=== PATIENT | male | born 1985 | race African-American/Black ===

== ENCOUNTER 2019-08-09 21:24 | Inpatient (IN) ==
[2019-08-09] MEDS ORDERED: NS 500 ML IV ONE (21:25)
[2019-08-09] MEDS ORDERED: NS 1,000 ML IV ONE ×2 (21:25→23:49)
[2019-08-09] MEDS ORDERED: TYLENOL PR ONE (21:28)
--- NOTE | 2019-08-09 21:39 | PROVIDER DOCUMENTATION ---
This chart was entered by Soraya Hidalgo Scribe, acting as scribe for Paul Cole MD. HPI-General Adult - General Stated Complaint: AMS Time Seen by Provider: 08/09/19 21:24 Source: EMS Allergies/Adverse Reactions: Patient Allergies Allergy/AdvReac Type Severity Reaction Status Date / Time No Known Allergies Allergy Verified 04/16/19 21:56 Home Medications: Home Medication List Medication Instructions Recorded Confirmed Last Taken Type NK [No Home Medications] 08/09/19 08/09/19 Unknown History - History of Present Illness -Gen Adult Nature of Presenting Problems: pt is a 34 yobm presenting w/ems w/cc pt was found in vehicle by workers at [employer], having seizure like activity. enroute, pt had voided and defecated on self, cold to touch and is disoriented to person, place and president. pt did deny drug use. in er pt continues to have diarrhea and rectal temp is 102.4. Severity: reports: moderate Onset/Duration: reports: just prior to arrival Timing: reports: still present Context/Activities at Onset: reports: cold exposure (found in vehicle, was there unk amt of time) Modifying Factors: improves with: nothing Associated Symptoms: reports: diarrhea, fever/chills (102.4), genitourinary problems (incontinence.), seizure (seizure like activity), other (ams, defecated on self) Review of Systems - Adult - REVIEW OF SYSTEMS - ADULT ROS:: limited per condition (ems ros) Constitutional: reports: see HPI, chills (cold to palp), fever. denies: fatique, weight gain, weight loss Eyes: reports: no symptoms reported Ears, Nose, Mouth & Throat: reports: no symptoms reported Cardiovascular: reports: no symptoms reported Respiratory: reports: no symptoms reported Gastrointestinal: reports: see HPI, diarrhea, other (defecated on self). denies: abdominal pain, difficulty swallowing, vomiting Genitourinary: reports: see HPI, incontinence. denies: discharge Musculoskeletal: reports: no symptoms reported Integumentary: reports: see HPI, other (cold to palp). denies: hives, itching, skin sores/ulcer Neurological: reports: see HPI, seizure (seizure like activity). denies: dizziness/vertigo, headache/migraines, tremors Psychiatric: reports: no symptoms reported Endocrine: reports: no symptoms reported Hematologic/Lymphatic: reports: no symptoms reported Allergic/Immunologic: reports: no symptoms reported All Other Systems: Reviewed and Negative Past History - Adult - PAST MEDICAL HISTORY-ADULT Review of Records: reports: Nursing Assessment Review, Medications Reviewed, Social history reviewed & non-contributory. Major Childhood Illnesses: reports: denies history Cardiovascular: reports: denies history Respiratory: reports: denies history Gastrointestinal: reports: denies history Obstetrical/Gynecological: reports: denies history Genitourinary: reports: denies history Musculoskeletal: reports: denies history Neurological: reports: denies history Psychiatric: reports: anxiety, other (adhd) Endocrine/Immune: reports: denies history Other Conditions: reports: denies history - PRIOR SURGERIES/PROCEDURES Surgical/Procedure History: reports: none - IMMUNIZATION STATUS Childhood Immunizations: See Nurse Assessment Flu Vaccine: See Nurse Assessment - FAMILY HISTORY Family History: reviewed, not pertinent - SOCIAL HISTORY Smoking: other (former) Substance Use: alcohol Alcohol Use Frequency: occasionally Physical Exam-General - PHYSICAL EXAM-ADULT Initial Vital Signs Reviewed: Yes - CONSTITUTIONAL General Appearance: mild distress, lethargic, slow to respond, obtunded, combative (slightly). negative: appears well, alert - EYES Eyes: PERRL/EOMI - HEAD, EARS, NOSE, MOUTH & THROAT HENMT: normocephalic/atraumatic. negative: moist mucous membranes (dry mucous membranes) - NECK Neck: full range of motion, supple, normal inspection. negative: Brudzinski's sign, meningismus - RESPIRATORY Respiratory: chest non-tender, lungs clear, normal breath sounds - CARDIOVASCULAR Cardiovascular: normal peripheral pulses, regular rate, rhythm - GASTROINTESTINAL (ABDOMEN) Abdominal Exam: normal bowel sounds, non tender, soft - MUSCULOSKELETAL Back Exam: normal inspection Extremity: normal range of motion, non-tender, normal inspection - SKIN Integumentary: normal color, normal turgor, other (cold to palp). negative: warm/dry, cyanosis, diaphoresis, mottled, tenderness, warm - NEUROLOGIC Neurologic: abnormal hose maker II-XII, other (pt not oriented to self, place and president. will not speak.). negative: aphasia, EOM palsy, facial droop, focal weakness, motor weakness - PSYCHIATRIC Psych/Mental Status: disoriented x 3, disheveled. negative: normal mood/affect, normal thought content, normal thought process, oriented x 3 Progress - PLAN OF CARE/RESULTS Progress/Plan/Lab Results: lactate levels are not valid to assess septic a patient who has experienced tonic clonic seizure, lactic acid will be elevated in all patients who have seizures delay in care: continue to await urinalysis and urine drug screen at 2355 Result Diagrams: 08/09/19 21:45 08/09/19 21:45 - REASSESSMENT Reassessment #1 Time Reassessed: 00:15 Status: improving Reassessment Comment: patient is now alert, denies headache, mom at bedside - EKG 1 Time of EKG reading by physician:: 00:26 EKG Read and Signed by:: Paul Cole Rate: 104 Rhythm: sinus tach Xenia: normal QRS: normal WA Interval: normal ST Wave: non-specific ST changes - XRAY 1 XRAY Study: Chest (NAD) - CT/MRI 1 CT Study: Head CT Results: NAD - CONSULTS/PCP/HOSPITALIST Notification #1 *Consult/PCP/Hospitalist*: Dr. Newberry/[facility] Hospitalist Time Discussed: 00:07 Consult Disposition: Admit Departure - Departure Date of Disposition Decision: 08/10/19 Time of Disposition Decision: 00:31 DIAGNOSIS: Seizure disorder, Febrile illness, Diarrheal disease, Dehydration, Elevated troponin Altered mental state Qualifiers: Altered mental status type: unspecified Qualified Code(s): R41.82 - Altered mental status, unspecified Disposition: ADMITTED INPATIENT 09 Certified Medical Emergency: Emergent Condition: Stable Referrals and Follow-Ups: None,PCP [Primary Care Provider] - - Critical Care Note This patient required my direct & personal management of CC.: No Attestation - Physician/ LUCÍA Attestation Patient care was provided by Advanced Practice Provider:: No The physician spent face to face time with patient:: Yes Advanced Practice Provider documentation review:: Supervising physician onsite and consulted in the evaluation and care of this patient. The physician did have a face to face encounter with the patient. This chart was documented by the indicated scribe, (Soraya Hidalgo Scribe) and accurately reflects the services I performed and decisions made by Douglas avalos Jose ph A., MD, as attested by the provider's signature.
[2019-08-09] MEDS ORDERED: ROCEPHIN 2 GM in NS 50 ML IV ONE (21:40)
[2019-08-09 22:11] LABS: BASO# 0.02 X1000 (0.0-0.2); BASO% 0.4 % (0.0-0.8); EOS# 0.01 X1000 (0.0-0.7); EOS% 0.2 % (0.0-10.0); HEMATOCRIT 45.6 % (42.0-52.0); HEMOGLOBIN 14.7 g/dL (14.0-18.0); IMM GRAN# 0.04 X1000 (0.0-0.04); IMM GRAN% 0.7 % (0.0-0.5); LYMPH# 2.13 X1000 (1.2-3.4); LYMPH% 39.9 % (20.5-51.1); MCH 30.1 PG (27-31); MCHC 32.2 g/dL (33-37); MCV 93.4 FL (81-99); MONO# 0.58 X1000 (0.11-0.59); MONO% 10.9 % (1.7-9.3); MPV 10.4 FL (7.4-10.4); NEUT# 2.56 X1000 (1.4-6.5); NEUT% 47.9 % (42.2-75.2); PLT 138 X1000 (130-400); RBC 4.88 XMIL (4.7-6.1); WBC 5.34 X1000 (4.8-10.8)
[2019-08-09] MEDS ORDERED: ROCEPHIN 1 GM in NS 50 ML IV ONE ×4 (22:14)
[2019-08-09 22:17] LABS: BE -5.1 mmoll (-3.0-3.0); BLOOD TYPE ARTERIAL; HCO3-(ACT) 20.7 mmoll (20.0-26.0); O2(CT) 19.5 mL/dL (15.0-23.0); PCO2(98.6) 32 mmHg (35-45); PO2(98.6) 56 mmHg (60-100); SAMPLE BLOOD; SAO2 91.4 % (95.0-100.0); THB 15.7 g/dL (11.5-17.4); pH(98.6) 7.38 (7.35-7.45)
[2019-08-09 22:25] LABS: INR 1.36; PROTIME 17.5 Seconds (11.0-16.0)
[2019-08-09 22:26] LABS: PTT 30.3 Seconds (22.3-41.8)
[2019-08-09 22:27] LABS: ALBUMIN 4.6 g/dL (3.5-5.0); CALCIUM 8.9 mg/dL (8.8-10.2); CREATININE 1.6 mg/dL (0.7-1.2); POTASSIUM 4.3 mmol/L (3.5-5.1); TOTAL PROTEIN 8.1 g/dL (6.3-8.3)
[2019-08-09 22:32] LABS: ALLEN TEST NO; MODALITY ROOM AIR; O2HB 88.4 % (95.0-99.0)
[2019-08-09 22:43] LABS: CK INDEX 0.6 (0.0-2.5); CK-MB 3.39 ng/mL (0.0-5.0)
[2019-08-09 23:21] LABS: INFLUENZA A NEGATIVE (NEGATIVE); INFLUENZA B NEGATIVE (NEGATIVE)
[2019-08-09 23:48] LABS: URINE SOURCE CATH
[2019-08-09 23:56] LABS: BILIRUBIN URINE NEGATIVE (NEGATIVE); BLOOD URINE MODERATE (NEGATIVE); COLOR YELLOW; GLUCOSE URINE NEGATIVE (NEGATIVE); KETONE URINE 10 mg/dL (NEGATIVE); LEUKOCYTES URINE NEGATIVE (NEGATIVE); NITRITE URINE NEGATIVE (NEGATIVE); PROTEIN URINE 300 mg/dL (NEGATIVE); TURBIDITY URINE HAZY (CLEAR); UROBILINOGEN URINE 2 mg/dL (NORMAL)
[2019-08-10 00:05] LABS: UR AMPHETAMINES QUAL NONE DETECTED (NONE DETECT); UR BARBITUATES QUAL NONE DETECTED (NONE DETECT); UR BENZODIAZEPIN QUAL NONE DETECTED (NONE DETECT); UR CANNABINOIDS QUAL NONE DETECTED (NONE DETECT); UR COCAINE QUAL NONE DETECTED (NONE DETECT); UR METHADONE QUAL NONE DETECTED (NONE DETECT); UR METHAMPHETAMINE QUAL NONE DETECTED (NONE DETECT); UR OPIATES QUAL NONE DETECTED (NONE DETECT); UR OXYCODONE QUAL NONE DETECTED (NONE DETECT); UR PCP QUAL NONE DETECTED (NONE DETECT); UR PROPOXYPHENE QUAL NONE DETECTED (NONE DETECT); UR TCA QUAL NONE DETECTED (NONE DETECT)
[2019-08-10 00:22] LABS: URINE RBC <10 /HPF (<10); URINE WBC <10 /HPF (<10)
[2019-08-10 00:23] LABS: UR EPITHELIAL CELLS <10 /HPF (<10); URINE BACTERIA 3+ /HPF; URINE YEAST NONE SEEN
[2019-08-10 00:26] LABS: URINE CRYSTALS NONE SEEN; URINE SMALL ROUND CELLS RENAL PRESENT
--- NOTE | 2019-08-10 00:31 | EKG Report ---
Test Performed on : 08/10/2019 00:25:30 AM Test Reason : pain Blood Pressure : / mmHG Vent. Rate : 104 BPM Atrial Rate : 104 BPM P-R Int : 156 ms QRS Dur : 104 ms QT Int : 364 ms P-R-T Axes : 079 066 039 degrees QTc Int : 478 ms Sinus tachycardia. Otherwise normal ECG No previous ECGs available Unconfirmed Result
[2019-08-10 01:29] LABS: ACETAMINOPHEN < 1.2 ug/mL (10-30); MAGNESIUM 3.2 mg/dL (1.5-2.7); SALICYLATES < 3.00 mg/dL (3-10)
[2019-08-10 02:06] LABS: CK INDEX 1.1 (0.0-2.5); CK-MB 5.31 ng/mL (0.0-5.0)
[2019-08-10 04:59] LABS: CK INDEX 1.2 (0.0-2.5); CK-MB 6.47 ng/mL (0.0-5.0)
--- NOTE | 2019-08-10 05:05 | EKG Report ---
Test Performed on : 08/10/2019 02:39:37 AM Test Reason : Elevated Troponin Blood Pressure : / mmHG Vent. Rate : 099 BPM Atrial Rate : 099 BPM P-R Int : 128 ms QRS Dur : 090 ms QT Int : 372 ms P-R-T Axes : 059 056 040 degrees QTc Int : 477 ms Normal sinus rhythm. Normal ECG When compared with ECG of 10-AUG-2019 00:25, (Unconfirmed) No significant change was found Unconfirmed Result
--- NOTE | 2019-08-10 06:26 | Diag Imaging Result Doc PS360 ---
CHEST-1 VIEW - 08/09/2019 INDICATION: fever COMPARISON: None FINDINGS: The lungs are normally expanded and clear. Heart size and mediastinal contours are normal. No pneumothorax or pleural effusion. IMPRESSION: Negative exam. Electronically signed by Gagan Nassar 08/10/2019 6:24 AM
[2019-08-10] MEDS ORDERED: ZOFRAN IV PRN (06:50)
[2019-08-10] MEDS ORDERED: TYLENOL PR PRN (06:50)
[2019-08-10] MEDS ORDERED: VANCOMYCIN IV PER PHARMACY MISC SCH (07:00)
--- NOTE | 2019-08-10 07:21 | Diag Imaging Result Doc PS360 ---
EXAM: CT HEAD W/O CONTRAST 08/09/2019 HISTORY: seizure,AMS TECHNIQUE: This exam was performed using automated exposure control, adjustment of mA or kV according to patient size, and/or use of iterative reconstruction technique. COMMENT: There are no previous studies available for comparison. There is no evidence of bleed, mass effect, or abnormal extra-axial fluid collection. The calvarium is intact. There is pneumocephalus. This is principally seen around the sella turcica. There are some gas bubbles seen adjacent to the pterygoid muscles in the left grocery manager space, and in the right temporalis muscle. There is gas adjacent to the internal jugular as it comes out of the carotid canal. There may be some mucosal gas adjacent to the fossae of Rosenmuller bilaterally. The calvarium is intact. There are no air-fluid levels in any of the paranasal sinuses. The sphenoid and frontal sinuses are hypoplastic. IMPRESSION: Pneumocephalus. Soft tissue gas in the left grocery manager space and the right temporalis fossa as well as in the submucosal spaces in the nasopharynx. These findings may be related to barotrauma, however clinical correlation is recommended. These findings were called to the ICU at 0718 and readback. Electronically signed by Rogelio Rebolledo 08/10/2019 7:19 AM
[2019-08-10] MEDS: NS 1,000 ML IV SCH ×2 (07:37→17:07)
--- NOTE | 2019-08-10 07:47 | EKG Report ---
Test Performed on : 08/10/2019 07:16:08 AM Test Reason : Elevated Troponin Blood Pressure : / mmHG Vent. Rate : 095 BPM Atrial Rate : 095 BPM P-R Int : 140 ms QRS Dur : 100 ms QT Int : 374 ms P-R-T Axes : 080 063 048 degrees QTc Int : 469 ms Normal sinus rhythm. Normal ECG When compared with ECG of 10-AUG-2019 02:39, (Unconfirmed) No significant change was found Confirmed by Maia Acosta MD ([id number]) on 08/10/2019 4:35:52 PM
[2019-08-10 07:48] LABS: BASO# 0.02 X1000 (0.0-0.2); BASO% 0.6 % (0.0-0.8); EOS# 0.01 X1000 (0.0-0.7); EOS% 0.3 % (0.0-10.0); HEMATOCRIT 40.3 % (42.0-52.0); HEMOGLOBIN 13.1 g/dL (14.0-18.0); IMM GRAN# 0.03 X1000 (0.0-0.04); IMM GRAN% 0.9 % (0.0-0.5); LYMPH# 1.12 X1000 (1.2-3.4); LYMPH% 32.3 % (20.5-51.1); MCH 30.5 PG (27-31); MCHC 32.5 g/dL (33-37); MCV 93.9 FL (81-99); MONO# 0.44 X1000 (0.11-0.59); MONO% 12.7 % (1.7-9.3); MPV 10.6 FL (7.4-10.4); NEUT# 1.85 X1000 (1.4-6.5); NEUT% 53.2 % (42.2-75.2); PLT 111 X1000 (130-400); RBC 4.29 XMIL (4.7-6.1); RDW 13.8 % (11.5-14.5); WBC 3.47 X1000 (4.8-10.8)
[2019-08-10] MEDS ORDERED: VANCOMYCIN 2,000 MG in NS 500 ML IV ONE (08:00)
[2019-08-10 08:01] LABS: INR 1.28; PROTIME 16.2 Seconds (11.0-16.0)
[2019-08-10 08:11] LABS: AGAP 11; ALBUMIN 3.4 g/dL (3.5-5.0); ALKALINE PHOSPHATASE 47 U/L (32-122); BUN 23 mg/dL (8-22); CHLORIDE 102 mmol/L (98-107); COSMO 277; CREATININE 1.2 mg/dL (0.7-1.2); ESTIMATED GFR > 60; GLUCOSE 92 mg/dL (70-104); GOT 48 U/L (10-34); GPT 38 U/L (10-44); POTASSIUM 4.6 mmol/L (3.5-5.1); SODIUM 137 mmol/L (136-145); TCO2 24 mmol/L (25-35); TOTAL BILIRUBIN 0.63 mg/dL (0.20-1.00); TOTAL PROTEIN 6.8 g/dL (6.3-8.3)
[2019-08-10 08:18] LABS: CK PROFILE 645 U/L (24-204)
[2019-08-10 08:54] LABS: CK INDEX 1.2 (0.0-2.5); CK-MB 7.76 ng/mL (0.0-5.0)
--- NOTE | 2019-08-10 09:41 | Diag Imaging Result Doc PS360 ---
EXAM: CT ABD/PELVIS/PULM ARTERIES 08/10/2019 HISTORY: ?Sepsis, decreased O2sat TECHNIQUE: This exam was performed using automated exposure control, adjustment of mA or kV according to patient size, and/or use of iterative reconstruction technique. COMMENT: Thorax: 3-D MIPS were performed. There are no previous studies of the chest or abdomen. There are multiple filling defects in the pulmonary artery branches on both sides including the upper and lower lobes as well as the right middle lobe. There are several emboli in both pulmonary arteries but not in the main pulmonary artery. These findings were discussed with Dr. Gresham at 0930 by telephone. The aorta is normal in caliber and there is no evidence of dissection. There is no evidence of abnormal fluid collections. There is no significant adenopathy. The regional skeleton is intact. No evidence of acute pulmonary parenchymal disease is present. ABDOMEN: There is no evidence of cholelithiasis and the liver is unremarkable in appearance. The spleen is not enlarged. The adrenal glands are not enlarged. There is a cortical cyst in the left kidney upper pole measuring 3.3 cm in diameter. There is retroperitoneal adenopathy with multiple nodes exceeding a centimeter and at least one exceeding 1.4 cm. There are also enlarged mesenteric nodes one of which measures over 13 mm. The pancreas is unremarkable. The aorta is not distended. There is no evidence of bowel obstruction. Pelvis: The appendix is not enlarged. There is a Morocho catheter in the bladder. There is no evidence of free fluid. No masses or significant adenopathy is present. There is no evidence of acute bony abnormality. IMPRESSION: 1. Extensive pulmonary emboli. 2. Retroperitoneal and mesenteric adenopathy of uncertain etiology. Electronically signed by Rogelio Rebolledo 08/10/2019 9:38 AM
[2019-08-10] MEDS: LOVENOX SUBQ SCH ×2 (11:23→21:18)
[2019-08-10] MEDS: ZOSYN 3.375 GM in NS 50 ML IV SCH ×3 (11:23→21:17)
--- NOTE | 2019-08-10 12:19 | Diag Imaging Result Doc PS360 ---
EXAM: MRI BRAIN W/WO CONTRAST 08/10/2019 HISTORY: seizure, ? pneumocephalus. TECHNIQUE: T1 sagittal, axial and post gadolinium-enhanced axial with coronal reformation, axial T2, FLAIR, DWI and coronal gradient echo. COMMENT: There are no previous MRI studies available for comparison. There is no evidence of mass effect, bleed, or abnormal extra-axial fluid collection. There is no evidence of restricted diffusion. There is considerable motion artifact on the post gadolinium images. It there is no evidence of abnormal gadolinium enhancement. IMPRESSION: Normal MRI of the brain. Electronically signed by Rogelio Rebolledo 08/10/2019 12:17 PM
[2019-08-10] MEDS ORDERED: BLISTEX MEDICATED BERRY LIP BALM TOP PRN (12:33)
--- NOTE | 2019-08-10 13:25 | ECHO REPORT ---
ORDER DATE: 08/10/2019 INDICATION: Possible seizure, elevated troponin. FINDINGS: 1. The right atrium appears normal in size. 2. Mild tricuspid regurgitation. RV systolic pressure of 36. 3. Normal RV size and systolic function. 4. No significant pulmonic insufficiency. 5. Normal left atrial size with a dimension of 3.1 cm. 6. No mitral prolapse. Mild mitral regurgitation. No mitral stenosis. 7. Normal LV size, end-diastolic dimension of 4.1 cm. Mild left ventricular hypertrophy with a posterior and interventricular septal wall thickness 1.2 cm each. Normal LV systolic function. Estimated EF of 60% with normal wall motion. 8. Aortic valve opens well. It is trileaflet. No evidence of stenosis or insufficiency. 9. The aorta appears normal in visualized segments. 10. No pericardial effusion seen. cc: Gasper Lopez MD
[2019-08-10] MEDS: KEPPRA 1,000 MG in NS 100 ML IV SCH (17:50)
--- NOTE | 2019-08-10 19:20 | PROGRESS NOTE ---
DATE: 08/10/2019 BRIEF PROGRESS NOTE: Patient brought in after being found down. Had seizure en route, but no further seizure activity since getting here. He had acute kidney injury which is improving, and markedly elevated lactate which is also much improved. Hypotension also improved with fluids and treatment. On empiric antibiotics with vancomycin and Zosyn, but no infection found so far. CTA obtained which did show bilateral PEs. The patient is now on therapeutic Lovenox. MRI obtained given new-onset seizure, which does not show any intracranial pathology. Suspect that the patient had pulmonary embolus with subsequent hypoxia which induced seizure rather than primary neurologic event. Troponin elevated, but has trended back down with improvement in his hypotension and borderline hypoxia. This appears to be type 2 AK/demand ischemia rather than acute coronary syndrome. The patient's mental status improving slowly. There was some concern for pneumocephalus underneath the left director alumni relations space and right temporalis muscle. There is no evidence of intracranial air. Discussed this with Radiology and they thought it may be artifactual and it was actually in the sinuses. The patient thoroughly examined and no evidence of trauma. No bruising, hematoma, edema, crepitus, or other abnormality in those areas identified. The patient is still somnolent and a little confused, but waking up and beginning to follow commands. No focal neurologic deficits identified. Continue to monitor closely in the ICU.
--- NOTE | 2019-08-10 19:47 | NEUROLOGY CONSULTATION ---
DATE: 08/10/2019 Mr. Ellis is 34 years old and there has been recent odd behavior, possibly altered awareness. History from the patient is that he believes he remembers playing with a grandson and then he next realized he was in the hospital. He does not have a grandson and his recollection of events is not accurate. Family reports he has made some other statements indicating loss of touch with reality, specifically that he has reported having spent time in the . Family reports this abnormal behavior has only been in recent days. There is report that he may have been sitting in his car unattended for a few days and then he presented to a vape shop where he was known and friends there recognized his abnormal behavior and called for attention. I do not have a clear history of witnessed seizure like behavior. Family reports no prior history of stroke, seizure, serious head injury, or other neurologic event. The patient and family deny alcohol abuse, illicit drug use, drug intoxication. By report, he was not taking any medication prior to admission. He presented this time with elevated liver enzymes, BUN 27, later 24, blood sugar 170, later 92, CK consistently 500s to 600s. Lactate was elevated at 5.0 and later normal at 1.5. Urine drug screen was all negative. He had temperature 102.2 degrees initially but has been afebrile for more than 12 hours now. He had 1 dose of acetaminophen and antibiotics were started. CT shows some intracranial air. Brain MRI just completed shows no definite abnormality. Review of the hospital record shows several ER visits with dental infection problems. On exam, Mr. Ellis is awake, alert, attentive. He seems appropriate. He is a little bit slow to respond. Speech is not significantly dysarthric. Language function is intact on bedside testing. He identified the hospital and named the President. He named the correct year but did not name the month when asked. I did not test his cognitive function further. Head and neck are unremarkable. There is no meningismus. He has full visual estevez to confrontational finger counting. Extraocular movements are full. Facial motility is symmetric. Gag is intact. Tongue is midline. He can hear. Shoulder shrug is equal. Strength is normal in the arms and legs. He did well on [id number] testing bilaterally. He is a little bit tremulous but there is no classifiable tremor or other abnormal movement. Plantar response is silent bilaterally. He reports equal pinprick appreciation over the dorsum of the hands and the dorsum of the feet. Proprioception is good at the great toe MTP joint bilaterally. Reflexes are 2+ at the left ankle, 1+ at the right ankle, 1+ symmetrically at the wrists. I did not test his gait. IMPRESSION: Global encephalopathy, uncertain etiology. He has multiple metabolic findings now, which might explain some of the encephalopathy features. Reason for the initial onset of encephalopathy is not certain. He might have had seizure or a series of seizures causing him to remain seated in his car for the reported 2-3 days. He might have had substance intoxication, which we have not detected here. There might have been head injury, but we do not have history of that and we do not have evidence of intracranial injury. In light of his stable course with improvement, I do not know of anything necessary urgently from neurologic standpoint. I will order EEG to be done when practical. Thanks for asking Neurology to see Mr. Ellis. cc: MD MANDA Baker III
[2019-08-10] MEDS ORDERED: ROCEPHIN 2 GM in NS 50 ML IV SCH (23:30)
[2019-08-11] MEDS: VANCOMYCIN 1,500 MG in NS 250 ML IV SCH ×2 (02:15→20:55)
[2019-08-11] MEDS: ZOSYN 3.375 GM in NS 50 ML IV SCH ×4 (02:15→20:55)
[2019-08-11] MEDS: NS 1,000 ML IV SCH (02:16)
--- NOTE | 2019-08-11 03:53 | HISTORY AND PHYSICAL ---
PRIMARY CARE PROVIDER: None. CHIEF COMPLAINT: Unresponsive. HISTORY OF PRESENT ILLNESS: Mr. Ellis is a 34-year-old male who, according to the ER physician and nurses report at [facility], was found unresponsive in his car in front of a Vape shop noted known as "[employer]." He was reported to possibly have been having seizure- like activity en route and did have loss of bowel and bladder during this time as well. They did note that the patient was cool to the touch. He was disoriented to person, place, time, and president. Though according to ER note, did deny any drug use. It was noted that after his arrival to the ER there, he did have continue to have episodes of diarrhea. His initial vital signs upon arrival were temperature 102.2 degrees, this was rectal, heart rate 113, respirations 29, blood pressure 113/73, and oxygen saturation was 92% on room air. He was not noted to have any leukocytosis, though chemistry did reveal that he did have acute kidney injury with a BUN of 27, creatinine 1.6, and GFR 49. Also, his CK, enzymes and troponin were elevated as well. Initial was 117 and repeat was 237. We did do an initial and repeat EKG, there do not appear to be any acute ST abnormalities noted. Initial EKG was sinus tachycardia, repeat was normal sinus rhythm. Urinalysis did not show any signs of infection. Influenza was negative. Urine drug screen was negative as well. Alcohol was zero. Salicylate and acetaminophen levels were within normal limits. I did immediately perform a CT of the head, which was noted to have no acute intracranial pathology. There was a nonspecific small foci of air in the left esthetician makeup artist space. Chest x-ray did not show any acute abnormalities as well. The patient was given a total of 1500 mL normal saline bolus. He was also started on antibiotic of Rocephin, he was given 2 g initially. He has been transferred to [facility] for further treatment and evaluation. He has been placed inpatient ICU. Upon my evaluation, the patient was resting in the bed with his eyes closed. He was easily arousable with verbal calling of his name and very light tactile stimulation by tapping on his shoulder. Once awoken, the patient is oriented to his name and oriented to person. He knew that he was in [place], but could not tell me what place he was in and had no recollection of time or what had happened prior to his arrival to the ER or at all during the day prior to his arrival. His mother was at bedside. She did assist with the past medical history. The patient reports that he has been staying in his car for the past few days. He reported that though he did not remember really what he had done all day, that he did remember that he was hanging out with his friends, but did not known where. As previously mentioned, the patient was found in his car in front of a Vape shop. The patient denies any alcohol use, prescription medication use, darp-txn-rwoqrep medication use, illicit drug use or tobacco use. Though, he did report that he does have vape on a regular basis. The patient and his mother denied him having any known history of seizures in the past. He denies any headache, dizziness. He is reporting some double vision though. He denies any sore throat, any neck pain or nuchal rigidity. Though the patient did not report a cough to me, his mother stated that since she had been with him in the ER, she did notice he had a slight cough. He was not reporting any chest pain or shortness of breath. Prior to his arrival in the ER, he denied any complaints of fever, body aches, or chills. He denied any abdominal pain, nausea, vomiting, or diarrhea prior to what he had en route to the hospital and after arriving in the ER. He denied any dysuria or urinary frequency. The patient's mother did state that he had been having some swelling in his bilateral lower extremities. When I asked the patient about that about this, he stated they have been swollen like this for a while, that this was not something that was new. He denied any pain numbness or tingling in extremities. He did report that he felt just generally weak, though. Upon speaking with the patient, it was as though he was having expressive aphasia. He would have periods where you would ask him a question it would take him a while to answer back. I did further question the patient about this and asked him was he having trouble getting his thoughts and words out, and he said yes. You could tell that he was trying to say something and was slow to respond to questions. His mother stated that this was not his normal. He did seem to stutter at times as well, though his speech was understandable. He denied recently being sick for not feeling well. He denied any recent use of antibiotics. The patient did report a history of ADHD, anxiety and depression. I did question about any further psychiatric disorders. He denied any known history of this. His mom did state that he did use to take Trileptal in the past, though has not taken this for quite some time. The patient has been placed in ICU for close monitoring. REVIEW OF SYSTEMS: A 14-point review of systems was conducted with the patient. All were negative except for pertinent positives mentioned above HPI. PAST MEDICAL HISTORY: 1. ADHD. 2. Anxiety. 3. Depression. PAST SURGERY: There was a questionable surgery for a possible what sounded to be like an incision and drainage, possibly of an abscess, though the patient could not elaborate for this, the mother could not confirm this either. SOCIAL HISTORY: The patient is a former smoker of cigarettes, though at this time only have vapes. He denied any alcohol use. He denied any prescription medication use, yabl-zqj-ekjrumh medication use or illicit drug use. The patient did confirm that he has recently been staying in his car. His mother was present at bedside during the time of my examination though. FAMILY HISTORY: Unfortunately, the patient was not able to give any information about his family medical history. He is adopted and does not know any past medical history about his biological parents. ALLERGIES: Patient has no known allergies. HOME MEDICATIONS: The patient denies any [id number] or prescription medication use. DIAGNOSTIC DATA: White blood cell count is 5340, hemoglobin 14.7, hematocrit 45.6, platelet count is 138,000. PT 17.5, INR 1.36, PTT is 30.3. Sodium 139, potassium 4.3, chloride 94, serum bicarb is 22, BUN 27, creatinine 1.6 with a GFR 49. Glucose 170, calcium 8.9, magnesium 3.2, total bilirubin is 1, AST 54, ALT 49, alkaline phosphatase is 59. CK is 528, CK index 0.6, CK-MB 3.39, troponin T high sensitivity was 117. Plasma lactate 5. Salicylate level was less than 3. Acetaminophen level was less than 1.2. Serum alcohol level was zero. Arterial blood gases were obtained on room air, pH 7.38, pCO2 of 32, PO2 of 56, HCO3 is 20.7 with a base excess of -5.1, oxyhemoglobin was 88.4, O2 saturation was 91.4%. Carboxyhemoglobin was 2.3. The patient has since been placed on nasal cannula at 2 L and is maintaining oxygen saturations at 94% to 96%. Influenza screen was negative. Urine drug screen was negative. Urinalysis did show positive for protein, ketones, blood and bacteria, though was negative for nitrites, leukocytes, or white blood cells. Initial EKG showed sinus tachycardia at a rate of 104 with a QTc of 478. There was no ST abnormalities noted. The patient's troponin did increase upon the recheck. We did repack repeat EKG at that time, which showed normal sinus rhythm. There were still no acute ST changes noted. Chest x-ray showed no acute abnormalities. We are awaiting radiologist impression. CT of the head without contrast showed no acute intracranial pathology. There was noted to be nonspecific small foci of air in the left esthetician makeup artist space. Blood cultures have been obtained. Urine culture has been ordered as well. We also have ordered stool studies of white blood cell count, stool culture and C diff toxin. PHYSICAL EXAMINATION: VITAL SIGNS: Temperature 99 degrees, heart rate 98, respirations 18, blood pressure is 120/83 with a MAP of 96. Oxygen saturation is 98% on nasal cannula at 2 L. GENERAL: Mr. Ellis is a pleasant, 34-year-old male, he was resting in the ICU stretcher with his eyes closed initially, though was easily arousable with verbal and light tactile stimulation tapping his shoulder. Though once awoken, he was only oriented to person and place, for which he knew the city, but could not tell me what type of facility he was in, though he was able to answer some simple questions and follow commands. HEENT: Head is atraumatic, normocephalic. Pupils are equal, round, reactive to light, were 3 mm bilaterally and brisk. EOMs were intact, though the patient did have some slight horizontal nystagmus noted. Oral mucosa is moist. Oropharynx is clear. NECK: Supple. The patient did have good range of motion in his neck. He did not have any nuchal rigidity noted. Trachea is midline. CARDIOVASCULAR: Patient had S1, S2 present. No murmurs, gallops, or rubs appreciated with a regular rate and rhythm. PULMONARY: Patient has symmetrical chest expansion bilaterally. Lung sounds were clear to auscultation bilateral full estevez. ABDOMEN: Soft, nontender, nondistended. Bowel sounds were present in all 4 quadrants. EXTREMITIES: No cyanosis or edema noted. Pulse, motor, and sensory is intact in all extremities. Radial and pedal pulses were 2+ bilaterally. The patient did not have any edema present in bilateral lower extremities, he as well as his mother stated that he has had some swelling in his legs. The patient stated that this had been going on. INTEGUMENTARY: The patient's skin color is normal for his race, is dry and intact. NEUROLOGICAL: Patient is alert and oriented to person and place, for which he knows the city, but could not tell me what facility was in. He was not oriented to time or situation. He did recognize his mother at bedside though. He is able to move all extremities, though does have generalized weakness noted. He denied any numbness or tingling. There is no arm drift noted. He did not have any facial drooping present. EOMs were intact. Visual estevez were intact as well with the patient reporting at times he is seeing double vision. He did have some slight horizontal nystagmus noted. Though he does have equal hand grasps and muscle strength bilaterally. ASSESSMENT AND PLAN: 1. Encephalopathy. This is of uncertain etiology at this time. There may be a possibility of new onset seizures that could be causing this. We will continue to rule out possible cerebrovascular accident, metabolic or infectious process. This also could be toxic in nature as well, though the patient denied any recent use of any medications, alcohol or illicit drugs. He did report that he does vape. Blood cultures have been obtained. We will place the patient on antibiotics of vancomycin and Rocephin at this time. We do need to consider possibility of possible meningitis as well. He will receive an echocardiogram in the morning as well as a carotid ultrasound. We will place him on Neurocheck's, aspiration precaution. He will be on continuous cardiac telemetry and pulse oximetry with frequent vital signs. We also placed a consult with Neurology with Dr. Esteban. We will await his evaluation and further recommendations for management. 2. Diarrhea. This could be related to the patient's seizure, though could be infectious in nature. We have ordered stool studies. Since his episode or two he had [facility] of diarrhea, the patient has not had any reported further episodes. We will await these results and continue to follow. 3. Acute kidney injury. This may be likely to some fluid volume depletion. The patient, looking back, did have a few blood pressure readings where his systolic was in the high 80s, though the mean arterial pressure has remained 65 and above. Some mild hypotension may be contributing to this as well. We are going to provide intravenous hydration with normal saline at 125 mL/h. The patient has already received 2500 mL normal saline bolus in the ER at [facility]. We will avoid nephrotoxic medications and renally dose medications as necessary. We will repeat a CMP this morning. 4. Fluid volume depletion. We will continue with treatment as mentioned above with IV normal saline. We will do strict intake and output. 5. Elevated cardiac enzymes. The patient has had elevated CK levels and troponin. The initial troponin was 117 with a repeat being 237. The 3rd has decreased to 158. During this time, the patient did not have any acute EKG changes. He does have an acute kidney injury, there is a possibility of sepsis as well. We will continue to rule out any further cardiac involvement. We did do have echocardiogram ordered for this morning as well as a repeat EKG, though at this time, the patient is denying any chest pain or shortness of breath. The patient has been placed in ICU for close monitoring. We are going to repeat a CBC, PT, INR, CMP and cardiac enzymes this morning. Further orders and recommendations pending hospital course, diagnostic studies, and physician evaluation. Dictated by TIAN Child for Jhon Newberry MD cc: Jhon Newberry MD
[2019-08-11] MEDS: KEPPRA 1,000 MG in NS 100 ML IV SCH ×2 (04:30→18:00)
[2019-08-11] MEDS: LOVENOX SUBQ SCH ×2 (10:02→20:55)
[2019-08-11 11:50] LABS: BASO# 0.04 X1000 (0.0-0.2); BASO% 1.1 % (0.0-0.8); EOS# 0.02 X1000 (0.0-0.7); EOS% 0.5 % (0.0-10.0); HEMATOCRIT 36.8 % (42.0-52.0); HEMOGLOBIN 11.7 g/dL (14.0-18.0); IMM GRAN# 0.02 X1000 (0.0-0.04); IMM GRAN% 0.5 % (0.0-0.5); LYMPH# 1.52 X1000 (1.2-3.4); LYMPH% 41.5 % (20.5-51.1); MCH 30.5 PG (27-31); MCHC 31.8 g/dL (33-37); MCV 95.8 FL (81-99); MONO% 21.9 % (1.7-9.3); MPV 10.5 FL (7.4-10.4); NEUT# 1.26 X1000 (1.4-6.5); NEUT% 34.5 % (42.2-75.2); PLT 124 X1000 (130-400); RBC 3.84 XMIL (4.7-6.1); RDW 13.6 % (11.5-14.5); WBC 3.66 X1000 (4.8-10.8)
[2019-08-11 12:04] LABS: AGAP 9; BUN 11 mg/dL (8-22); CALCIUM 8.1 mg/dL (8.8-10.2); CHLORIDE 106 mmol/L (98-107); COSMO 278; ESTIMATED GFR > 60; GLUCOSE 82 mg/dL (70-104); POTASSIUM 4.4 mmol/L (3.5-5.1); SODIUM 140 mmol/L (136-145); TCO2 25 mmol/L (25-35)
[2019-08-11 13:25] LABS: ANISOCYTOSIS 1+; BASO 2 % (0-1); EOS 1 % (1-10); HYPOCHROM 1+; LYMPHS 43 % (21-51); MONO 21 % (1-9); NRBC 1 % (0-0); POIKILOCYTOSIS 1+; SEGS 33 % (42-75)
[2019-08-11 13:26] LABS: LARGE PLATELETS OCCASIONAL
--- NOTE | 2019-08-11 21:30 | PROGRESS NOTE ---
DATE: 08/11/2019 INTERVAL HISTORY: The patient's mental status continues to improve. Still slightly slow and slightly confused but much improved from previous. Afebrile overnight. No acute events. No new complaints. REVIEW OF SYSTEMS: Twelve point review of systems negative as per interval history. LABS: WBC 3.6, hemoglobin 11.7, hematocrit 36.8, platelets 124,000. Sodium 140, potassium 4.4, bicarb 25, BUN 11, creatinine 1.0, glucose 82. IMAGING: MRI brain unremarkable. VITALS: T-max 99 degrees, pulse 97, respiratory rate 14, blood pressure 114/68, O2 saturation 100% on 2 L by nasal cannula. PHYSICAL EXAMINATION: General: No acute distress. Vitals as above. HEENT: Normocephalic, atraumatic. Moist mucous membranes. No cervical adenopathy. Cardiovascular: Regular rate and rhythm. No murmurs noted. Pulmonary: Rare scattered rhonchi but largely clear to auscultation bilaterally. Abdomen: Soft, nontender, nondistended. Bowel sounds positive. Extremities: Peripheral pulses intact. No clubbing or cyanosis. Neurologic: Cranial nerves grossly intact. No focal deficits identified. Psychiatric: Patient asleep but easily arousable, cooperative with all commands, responds to most questions appropriately although slowly, oriented to person, place and year but not month. ASSESSMENT AND PLAN: 1. Acute pulmonary embolus. Patient found down in his car. Had seizure en route. Initial cause was not entirely clear but eventually got CTA chest which did show fairly extensive bilateral pulmonary emboli which is likely the cause. Initially had likely some dehydration as well as acute kidney injury and elevated lactate that improved with fluids. Patient now on therapeutic Lovenox and improving slowly. Stable to go to the floor at this point. 2. Seizure likely due to pulmonary embolism and transient hypoxia. Although his oxygen has been pretty good here. Neurology was consulted and have ordered EEG. No further seizure activity since arrival in the hospital. 3. Metabolic encephalopathy, improving. The patient is still little slow and slightly confused but significantly better than he was over the last couple days. MRI with no stroke or other clear brain injury. May be due to how sick he was when he came in with pulmonary embolism, lactic acidosis, etc. Continue supportive care and monitor. 4. Acute kidney injury, essentially resolved. Continue monitoring. 5. Hypotension, resolved. 6. Borderline hypoxia appears to be improving. 7. Disposition. Will go ahead and move patient to the floor. If his mental status will continue to improve then may be able to transition to oral anticoagulants and discharged home in the next 24 to 48 hours.
[2019-08-12] MEDS: ZOSYN 3.375 GM in NS 50 ML IV SCH ×4 (02:15→20:21)
[2019-08-12] MEDS: KEPPRA 1,000 MG in NS 100 ML IV SCH ×2 (04:18→16:50)
[2019-08-12 05:48] LABS: BASO# 0.02 X1000 (0.0-0.2); BASO% 0.7 % (0.0-0.8); EOS# 0.04 X1000 (0.0-0.7); EOS% 1.5 % (0.0-10.0); HEMATOCRIT 37.2 % (42.0-52.0); IMM GRAN# 0.04 X1000 (0.0-0.04); IMM GRAN% 1.5 % (0.0-0.5); LYMPH# 1.13 X1000 (1.2-3.4); LYMPH% 41.2 % (20.5-51.1); MCH 30.5 PG (27-31); MCHC 32.3 g/dL (33-37); MCV 94.4 FL (81-99); MONO# 0.37 X1000 (0.11-0.59); MONO% 13.5 % (1.7-9.3); MPV 10.3 FL (7.4-10.4); NEUT# 1.14 X1000 (1.4-6.5); NEUT% 41.6 % (42.2-75.2); PLT 151 X1000 (130-400); RBC 3.94 XMIL (4.7-6.1); RDW 13.2 % (11.5-14.5); WBC 2.74 X1000 (4.8-10.8)
[2019-08-12 06:55] LABS: AGAP 11; BUN 6 mg/dL (8-22); CALCIUM 8.2 mg/dL (8.8-10.2); CHLORIDE 104 mmol/L (98-107); COSMO 274; CREATININE 0.9 mg/dL (0.7-1.2); ESTIMATED GFR > 60; GLUCOSE 86 mg/dL (70-104); POTASSIUM 4.2 mmol/L (3.5-5.1); SODIUM 139 mmol/L (136-145); TCO2 24 mmol/L (25-35)
[2019-08-12] MEDS: LOVENOX SUBQ SCH ×2 (09:16→23:23)
[2019-08-12] MEDS ORDERED: CALMOSEPTINE OINTMENT TOP PRN (09:30)
[2019-08-12] MEDS: VANCOMYCIN 1,500 MG in NS 250 ML IV SCH (16:53)
--- NOTE | 2019-08-12 19:34 | PROGRESS NOTE ---
DATE: 08/12/2019 INTERVAL HISTORY: Patient's respiratory status remains good. Mental status improving but very slowly at this point. Remains at least mildly confused. No new complaints. a couple mildly elevated temps but no susana fevers. No other acute events overnight. REVIEW OF SYSTEMS: Twelve point review of systems negative except as per interval history. LABS: WBC 2.7, hemoglobin 12.0, hematocrit 37.2, platelets 151,000. Sodium 139, potassium 4.2, bicarb 24, BUN 6, creatinine 0.9, glucose 86, calcium 8.2. Blood culture, initial blood culture 1 of 2 positive but growing Staphylococcus epidermidis which is likely a contaminant. VITAL SIGNS: T-max 100.2 degrees, pulse 64, respirations 18, blood pressure 110/67, O2 saturation 100% on room air. PHYSICAL EXAMINATION: General: No acute distress. Vital signs: As above. HEENT: Normocephalic, atraumatic. Moist mucous membranes. No cervical adenopathy. Cardiovascular: Regular rate and rhythm. No murmurs noted. Pulmonary: Essentially clear to auscultation bilaterally at this point. Abdomen: Soft, nontender, nondistended. Bowel sounds positive. Extremities: Peripheral pulses intact. No clubbing or cyanosis. Neurologic: Cranial nerves grossly intact. No focal deficits identified. Psychiatric: Patient asleep, but arouses fairly easily. Answers most questions appropriately but very slowly and does appear to be at least mildly confused. Oriented to person, place, and year but not month. All responses are extremely slow. While he gets the most answers correct, he seems to really search for answers to fairly simple straightforward questions. ASSESSMENT AND PLAN: 1. Acute pulmonary emboli. Patient found down in his car. Had seizure en route, but no further seizures since then. Initial cause was not entirely clear but later CTA showed significant bilateral pulmonary emboli. Oxygen has been pretty good here, but suspect he was hypoxic at some point prior to admission which caused him to pass out. Patient now on therapeutic Lovenox and respiratory status is quite good. 2. Seizures. Suspect this is due to PE and likely transient hypoxia. No further seizures since then. Neurology is on board and recommended at least short term Keppra. Will await further recommendations from them on whether to continue him on that or not. MRI was negative. EEG performed but final read pending. 3. Metabolic encephalopathy. Patient initially was improving fairly quickly, but he is not really significantly different today than what he was yesterday. He remains slow and mildly confused. MRI with no stroke or other clear brain injury. This may continue to improve, but there is some concern that he may have done some permanent damage. We will see how he does over the next day or 2. 4. Acute kidney injury, resolved. 5. Hypertension, resolved. 6. Borderline hypoxia, resolved. 7. Disposition. Patient a little globally weak, so we will go and get physical therapy to see him. We will talk with Case Management about what options may be, but as he does not have insurance I suspect it will be quite limited. Discussed with family. They state that they have found out that he was actually living out of the car that he was found in and has been homeless for a while. The biggest barrier to discharge may be his mental status as he does not appear to have the capacity to make his own decisions at this point. We will see what his mental status does over the next 24 to 48 hours and what Case Management says about our options. [facility] HOSPITALJonathon
[2019-08-13] MEDS: ZOSYN 3.375 GM in NS 50 ML IV SCH (02:18)
[2019-08-13] MEDS: KEPPRA 1,000 MG in NS 100 ML IV SCH (05:56)
--- NOTE | 2019-08-13 07:30 | Diag Imaging Result Doc PS360 ---
EXAM: CHEST-PORTABLE INDICATION: cough TECHNIQUE: 2 views COMPARISON: 08/09/2019 FINDINGS: The lungs are grossly clear. There is no discrete pleural fluid collection or pneumothorax. The cardiomediastinal silhouette and central vasculature are grossly unremarkable. IMPRESSION: No evidence of acute pathology by plain radiograph. Electronically signed by Ray Hidalgo 08/13/2019 7:27 AM
[2019-08-13] MEDS: LOVENOX SUBQ SCH ×2 (10:26→21:32)
--- NOTE | 2019-08-13 14:55 | PROGRESS NOTE ---
DATE: 08/13/2019 INTERVAL HISTORY: Patient's strength is much improved. Did well with physical therapy. Mental status continues to be slow and slightly confused. No new complaints. No acute events overnight. REVIEW OF SYSTEMS: Twelve point review of systems negative except as per interval history. LABS: WBC 2.7, hemoglobin 12.0, hematocrit 37.2, platelets 151,000. Sodium 139, potassium 4.2, bicarb 24, BUN 6, creatinine 0.9. VITAL SIGNS: T-max 98.4 degrees, pulse 93, respirations 22, blood pressure 118/51, O2 saturation 98% on room air. PHYSICAL EXAMINATION: General: No acute distress. Vitals: As above. HEENT: Normocephalic, atraumatic. Moist mucous membranes. No cervical adenopathy. Cardiovascular: Regular rate and rhythm. No murmurs noted. Pulmonary: Clear to auscultation bilaterally. Abdomen: Soft, nontender, nondistended. Bowel sounds positive. Extremities: Peripheral pulses intact. No clubbing or cyanosis. Neurologic: Cranial nerves grossly intact. No focal deficits identified. Psychiatric: Patient is awake and alert. Remains oriented to person, place, and year but not month. All responses are slow and he frequently seems to struggle for quite a while before coming up with an answer. ASSESSMENT AND PLAN: 1. Acute bilateral pulmonary emboli. The patient was found down in his car. Reportedly had seizure en route with loss of bowel and bladder continence but no seizures since arrival. Initial cause is not entirely clear but later CTA showed significant bilateral pulmonary emboli. Oxygen has been good here but suspect he was hypoxic at some point prior to admission which caused him to pass out. The patient is on therapeutic Lovenox. Respiratory status is good. Will transition to Eliquis. 2. Possible seizure. Reportedly had seizure en route to the hospital. Suspect due to pulmonary thromboembolism and likely transient hypoxia. No further seizures since then. Neurology is on board and initially recommended at least short-term Keppra. Awaiting further recommendations from neurology on whether to continue that and for how long, as well as what his EEG showed. MRI with and without contrast was negative. 3. Metabolic encephalopathy. Patient initially improved fairly quickly but has been slower to improve over the last couple days. Remains very slow and mildly confused. MRI with no stroke or mass. No other clear brain injury. Some concern that the patient may have had some permanent damage but may have continued slow improvement. We will see how he does. 4. Acute kidney injury, resolved. 5. Hypertension, stable. 6. Borderline hypoxia, resolved. 7. Adenopathy on initial CT, likely reactive based on his acute illness but seeing as how he is a 34-year-old with a not clearly provoked clot, we will ask for hematology's opinion to make sure they do not think he needs further workup on that. 8. Disposition. Patient did better with physical therapy then we anticipated. He should be physically able to take care of himself but may mentally struggle as he is still extremely slow and slightly confused. Awaiting final recommendations from neurology but anticipate discharge in the next 24 to 48 hours.
--- NOTE | 2019-08-13 19:28 | EEG REPORT ---
DATE: 08/10/2019 REFERRING PHYSICIAN: Yana Esteban III, MD ASSIGNMENT EDITOR: Tri Bell. BACKGROUND INFORMATION/TECHNIQUE: This is a digitally recorded portal routine EEG with video. HISTORY: A 34-year-old male with question of seizure. EEG is ordered to detect evidence of seizures. EEG FINDINGS: A moderately well-formed 11 hertz posterior dominant alpha rhythm is seen symmetrically in the occipital regions and attenuates with eye opening. The anterior background at maximal alertness consists of mixed alpha and beta range frequencies. There are rare intermixed theta frequencies. No definite persistent focal slowing. No epileptiform discharges. No seizures. Hyperventilation is not performed. Photic stimulation induces a normal driving response. The patient becomes drowsy and enters into stage N2 sleep. EKG demonstrates regular RR intervals. IMPRESSION AND CLINICAL CORRELATION: Borderline abnormal routine EEG due to very mild diffuse slowing suggestive of a very mild nonspecific encephalopathy versus drowsiness. No epileptiform discharges or seizures seen on the current study. This does not rule out an underlying seizure disorder. Clinical correlation is recommended. cc: MD Yana Maki III, MD
--- NOTE | 2019-08-13 21:00 | NEUROLOGY PROGRESS NOTE ---
DATE: 08/13/2019 Mr. Ellis has improved over the weekend. Family at the bedside reports he may not be quite back to his baseline personality and cognitive levels. He has not had definite seizure-like activity noted here. He has tolerated levetiracetam 1000 mg q.12 hours IV. Family at the bedside does not have any definite new history regarding his time just before admission. They report he has chronic problem with temper and previous diagnosis of intermittent explosive disorder. He was treated with oxcarbazepine for a few months a few years ago but did not keep followup then. He did not complete high school and did have some learning difficulty. He lost his last job following an argument with a superior. 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 On exam today, he is awake, alert, calm, collected, attentive, appropriate. Speech is not dysarthric. Language function is intact. Remote memory is fair. Recent memory is poor. He named the hospital. He struggled but did eventually provide the correct month. He guessed incorrectly the day to be Tuesday. My impression is that he had a transient encephalopathy with amnesia and possibly delusions (reporting that he had been playing with a grandson and he has no grandchildren, discussing his time in the when he was never in the ). I believe there is a baseline cognitive issue, possibly learning disability and possibly baseline personality disorder. I do not have definite evidence of seizure. I wonder if he had an episode of collapse associated with transient arrhythmia/hypotension due to pulmonary emboli. Seizure may or may not have occurred during that time frame. With history that he had taken oxcarbazepine in the past and tolerated that and lab showing improvement in his liver enzymes this admission, and concern that levetiracetam might aggravate a baseline personality disorder, I will discontinue levetiracetam and order oxcarbazepine 300 mg b.i.d. I have offered to see him as an outpatient to follow up on oxcarbazepine management, if needed but that may not be necessary if he has psychiatry/mental health followup. Again, we have not made a definite diagnosis of seizure. cc: MD MANDA Baker III
[2019-08-13] MEDS: TRILEPTAL PO SCH (21:32)
[2019-08-14 08:24] VITALS: BP 129/81
[2019-08-14] MEDS: TRILEPTAL PO SCH (08:40)
[2019-08-14] MEDS: LOVENOX SUBQ SCH ×2 (08:40→11:11)
--- NOTE | 2019-08-15 10:29 | DISCHARGE SUMMARY ---
ADMISSION DATE: 08/10/2019 DISCHARGE DATE: 08/14/2019 CONSULTATIONS: Neurology. ADMISSION DIAGNOSES: 1. Encephalopathy. 2. Possible new-onset seizure. 3. Acute kidney injury. 4. Fluid volume depletion. 5. Elevated cardiac enzymes. DISCHARGE DIAGNOSES: 1. Acute bilateral pulmonary emboli. 2. Possible seizure that occurred en route to hospital. 3. Metabolic encephalopathy, improved. 4. Acute kidney injury, resolved. 5. Hypertension. SUMMARY OF FINDINGS: This is a 34-year-old male who presented to the emergency room via EMS after he was found unresponsive in his car in front of a vape shop. En route to the emergency room, he was having a possible seizure with loss of bowel and bladder during that time. He was disoriented to person, place, time, and President. He denied using any drugs. CT of the head showed pneumocephalus with soft tissue gas in the left muck miner space and the right temporalis foci, as well as in the submucosal space of the nasopharynx, and this could be related to barotrauma. We did a brain MRI on 08/10/2019 that showed normal MRI of the brain. We did an abdomen and pelvic CT on 08/10/2019 that showed an impression of extensive pulmonary emboli bilaterally in both pulmonary arteries, but not in the main pulmonary artery. He was placed on anticoagulant. Neurology felt that he had a transient encephalopathy with amnesia and possibly delusions. I believe that there were some baseline cognitive issues, possibly even a learning disability or possibly baseline personality disorder, but his history is that he had taken oxcarbazepine in the past and tolerated that, and labs showing improvement in his liver enzymes this admission, and there was concern also that Keppra might aggravate his baseline personality disorder. He was placed on oxcarbazepine 300 mg b.i.d., and will follow up at discharge, and it is now felt that he is safe for discharge. DISCHARGE MEDICATIONS: Include Eliquis 5 mg p.o. b.i.d. and oxcarbazepine 300 mg p.o. b.i.d. FOLLOWUP: He will need to follow up with his primary care physician in the next 1 to 2 weeks, and also follow up with Neurology, and call their office for an appointment. DISCHARGE INSTRUCTIONS: All discharge instructions were reviewed with the patient, and he verbalized understanding. TIME SPENT: A 35-minute discharge. Dictated by TIAN Bradford for Pk Gresham MD cc: TIAN Bradford MD
== END 2019-08-14 12:30 | disposition home or self-care (01) | DRG 175 ==
LOC: P.ED 21:24 → SUATTDRO 08-10 02:55 → ICU 08-10 02:55 → 1N 08-11 13:47
PROVIDERS: ATTEND Internal Medicine